=== PATIENT | female | born 1990 | race American Indian/Alaskan Native ===

== ENCOUNTER 2017-02-21 22:21 | Emergency (ER) | payer SELFPAY ==
[2017-02-22] MEDS ORDERED: MOTRIN PO ONE (07:37)
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
[2017-02-22 08:01] VITALS: BP 169/101
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
== END 2017-02-22 08:02 | disposition home or self-care (01) ==
LOC: ED 22:21
DX: I10 Essential (primary) hypertension (principal); M54.6 Pain in thoracic spine; J45.909 Unspecified asthma, uncomplicated; F12.10 Cannabis abuse, uncomplicated; Z87.891 Personal history of nicotine dependence; Z91.013 Allergy to seafood; V89.2XXA Person injured in unspecified motor-vehicle accident, traffic, initial encounter; Y93.9 Activity, unspecified; Y99.9 Unspecified external cause status; Y92.410 Unspecified street and highway as the place of occurrence of the external cause
CPT/HCPCS: 72040; 99283